=== PATIENT | male | born 1950 | race Caucasian/White ===

== ENCOUNTER 2017-01-13 08:37 | Day surgery (SDC) | payer BC, MEDICARE ==
[2017-01-13 09:39] VITALS: TEMP 97.3
[2017-01-13 11:15] VITALS: PULSE 78; RESP 20
[2017-01-13 11:23] VITALS: BP 128/88; O2SAT 98
== END 2017-01-13 11:37 | disposition home or self-care (01) ==
LOC: SURG 08:37
PROVIDERS: ATTEND Internal Medicine Gastroenterology
DX: R13.10 Dysphagia, unspecified (principal); K21.9 Gastro-esophageal reflux disease without esophagitis; K22.2 Esophageal obstruction; K44.9 Diaphragmatic hernia without obstruction or gangrene; K31.7 Polyp of stomach and duodenum; K31.9 Disease of stomach and duodenum, unspecified
CPT/HCPCS: 43239; 43249; 99001; J2001; J2704